=== PATIENT | female | born 1965 | race American Indian/Alaskan Native ===

== ENCOUNTER 2019-05-09 18:58 | Emergency (ER) | payer SELFPAY ==
--- NOTE | 2019-05-09 19:54 | Event Note ---
ED Screening Note Date of service: 05/09/19 Time: 19:53 ED Screening Note: 54 y o female presents to ED cc of wasp sting and generalized hives started today This initial assessment/diagnostic orders/clinical plan/treatment(s) is/are subject to change based on patients health status, clinical progression and re- assessment by fellow clinical providers in the ED. Further treatment and workup at subsequent clinical providers discretion. Patient/guardian urged not to elope from the ED as their condition may be serious if not clinically assessed and managed. Initial orders include:
[2019-05-09] MEDS ORDERED: PEPCID PO ONE (19:55)
[2019-05-09] MEDS ORDERED: DECADRON IM ONE (19:55)
[2019-05-09] MEDS ORDERED: BENADRYL PO ONE (19:55)
[2019-05-09 19:56] VITALS: BP 145/83
== END 2019-05-09 20:30 | disposition left against medical advice (07) ==
LOC: ED 18:58
DX: R22.0 Localized swelling, mass and lump, head (principal); Z53.21 Procedure and treatment not carried out due to patient leaving prior to being seen by health care provider